=== PATIENT | male | born 1970 | race Caucasian/White ===

== ENCOUNTER → 2019-01-11 | Outpatient (CLI) | payer BC ==
--- NOTE | 2019-01-11 12:06 | NM ---
EXAMINATION TYPE: NM stress cardiolite complete DATE OF EXAM: 01/11/2019 COMPARISON: NONE HISTORY: 48-year-old male shortness of breath, difficulty in breathing TECHNIQUE: After the intravenous administration of 9.94 mCi Tc 99m Sestamibi - Rest images obtained 50 minutes post injection. The patient exercised using a TACHO protocol and 1 minute prior to peak exercise was injected with 26.9 mCi Tc 99m Sestamibi - Stress images obtained 10 minutes post injecti on. FINDINGS: Targeted heart rate was achieved during performance of the study. Total exercise time: 9 minutes. 10. 3 METS were achieved. Review of stress and rest SPECT images demonstrates an apparent fixed perfusion defect along the inferolateral wall which may be attenuation as it is not corroborated on the polar maps. No overt stability is identified. Gated analysis shows normal wall motion with an estimated lef t ventricular ejection fraction of 79 %. TID is calculated at 0.63, within normal limits. IMPRESSION: Fixed perfusion defect along the inferolateral wall not corroborated on polar maps, possible attenuat ion artifact. Further clinical correlation recommended. No suspicious reversibility seen.
--- NOTE | 2019-01-11 12:51 | EST ---
EXERCISE STRESS AGE: 48 SEX: M HT: 5'10" WT: 245 PROTOCOL: Cardiolite Roque Stress Test STAGE: 3 DURATION OF EXERCISE: 9:00 HEART RATE REST: 78 BLOOD PRESSURE REST: 110/80 MAXIMUM HEART RATE ACHIEVED: 153 MAXIMUM BLOOD PRESSURE: 156/83 85% MPHR: 145 100% MPHR: 171 METS: 10.3 INDICATION: Shortness of breath, difficulty in breathing. CLINICAL INFORMATION: STRESS DATA: Pretesting physical examination showed a heart rate of 78, pressure is 110/80 mmHg. Baseline EKG showed sinus mechanism. The patient exercised on the Roque protocol for a total of 9 minutes and achieved 10.3 METS. Max heart rate was 153 which is about 89% of maximum predicted heart rate. Maximum blood pressure was 135/75 mmHg. Clinically, the patient did not have any symptoms of chest pain or chest discomfort during the testing or on recovery and the EKG did not show any evidence of significant ST or T-wave abnormalities concerning for ischemia. CONCLUSION: 1. Excellent exercise tolerance. 2. Normal EKG in response to exercise. 3. Please follow up on the Cardiolite portion on separate report from Radiology Department. MMODL / IJN: [id number] /
== END ==
LOC: RADNMMAIN 08:05
PROVIDERS: ATTEND Family Medicine
DX: R06.02 Shortness of breath (principal)
CPT/HCPCS: 93017; 78452; A9500

== ENCOUNTER 2022-02-27 17:37 | Emergency (ER) | payer BC ==
[2022-02-27 17:57] VITALS: TEMP 99
--- NOTE | 2022-02-27 18:16 | XR ---
EXAMINATION TYPE: XR chest 2V DATE OF EXAM: 02/27/2022 COMPARISON: NONE HISTORY: Cough TECHNIQUE: 2 views FINDINGS: Heart and mediastinum are normal. Lungs are clear. Diaphragm is normal. Bony thorax is inta ct. IMPRESSION: Normal chest.
--- NOTE | 2022-02-27 18:53 | ED ---
URI HPI - General Chief Complaint: Upper Respiratory Infection Stated Complaint: Low O2 Time Seen by Provider: 02/27/22 18:35 Source: patient Mode of arrival: ambulatory Limitations: no limitations - History of Present Illness Initial Comments: Patient is a 52-year-old male presenting with chief complaint of congestion. Patient states that his is currently sick with Covid. Patient has been experiencing congestion, sinus pressure, headache. He was tested for Covid yesterday at an urgent care, PCR and rapid were negative. Patient states that t he urgent care yesterday his oxygen saturation was 88% and they advised him to report to the ER. When the patient was not feeling better today he decided to report for evaluation. He denies any difficulty breathing or chest pain. Mild cough, nonproductive. No palpitations or weakness. No nausea, vomiting, abdominal pain. No difficulty swallowing. No fever or chills. - Related Data Previous Rx's Medication Instructions Recorded Nirmatrelvir/Ritonavir [Paxlovid 1 unit PO BID #1 pack 02/27/22 300-100 mg Pack (Eua)] Allergies Allergy/AdvReac Type Severity Reaction Status Date / Time No Known Allergies Allergy Verified 02/27/22 17:57 Review of Systems ROS Statement: Those systems with pertinent positive or pertinent negative responses have been documented in the HPI. ROS Other: All systems not noted in ROS Statement are negative. Past Medical History Past Medical History: Hypertension History of Any Multi-Drug Resistant Organisms: None Reported Past Surgical History: No Surgical Hx Reported Past Psychological History: No Psychological Hx Reported Smoking Status: Never smoker Past Alcohol Use History: None Reported Past Drug Use History: None Reported General Exam Limitations: no limitations General appearance: alert, in no apparent distress Head exam: Present: atraumatic, normocephalic, normal inspection Eye exam: Present: normal appearance, PERRL, EOMI. Absent: scleral icterus, conjunctival injection, periorbital swelling Neck exam: Present: normal inspection, full ROM Respiratory exam: Present: normal lung sounds bilaterally. Absent: respiratory distress, wheezes, rales, rhonchi, stridor Cardiovascular Exam: Present: regular rate, normal rhythm, normal heart sounds. Absent: systolic murmur, diastolic murmur, rubs, gallop, clicks Neurological exam: Present: alert, oriented X3, CN II-XII intact Psychiatric exam: Present: normal affect, normal mood Skin exam: Present: warm, dry, intact, normal color. Absent: rash Course Vital Signs 02/27/22 02/27/22 17:54 19:18 Temperature 99 F Pulse Rate 84 85 Respiratory 20 16 Rate Blood Pressure 102/69 124/92 O2 Sat by Pulse 96 95 Oximetry Medical Decision Making - Medical Decision Making Is a 52-year-old male presenting with chief complaint of congestion. Patient is also present for evaluation of hit his O2, patient was in urgent care yesterday for Covid testing, he tested negative, however during that visit his oxygen was at about 88%. Patient states he felt fine as we do not report the ER, however today when he did not feel better he decided to seek evaluation. No shortness of breath or difficulty breathing. No palpitations or weakness. Physical examination is unremarkable, heart and lungs are clear to auscultation. Patient's oxygenation here in the ER today is above 90% at all times, ranging from 95% and above. Patient tested positive for Covid today, chest x-ray shows no sign of pneumonia or acute process. Patient has history of hypertension, he is prescribed Paxil over, advised to discontinue the use of atorvastatin while taking this medication. No history of kidney disease. Educated on supportive treatment and quarantine guidelines. Follow-up with PCP. Report back to ER with any new or worsening symptoms. Discussed return parameters and answered all questions. Patient conveyed verbal understanding and agreed to the plan. I discussed this case in detail with my attending Dr. Ramos - Lab Data Lab Results 02/27/22 Range/Units 18:00 Coronavirus (PCR) Detected A (Not Detectd) Disposition Clinical Impression: COVID Disposition: HOME SELF-CARE Condition: Good Instructions (If sedation given, give patient instructions): COVID-19 (Riggs virus Disease 2019) (ED) Additional Instructions: Follow-up with PCP. Report back to ER with any new or worsening symptoms. Quarantined for 5 days starting from the first day of symptoms. If after 5 days URI or fever and symptom free for 24 hours, he may injure quarantine and follow strict mask usage while in public at all times for an additional 5 days. Take Motrin and Tylenol as needed for fever and pain control. Do not take atorvastatin with Paxlovid, you may resume taking atorvastatin 3 days after finishing Paxlovid. Prescriptions: Nirmatrelvir/Ritonavir [Paxlovid 300-100 mg Pack (Eua)] 1 unit PO BID #1 pack Is patient prescribed a controlled substance at d/c from ED?: No Referrals: Vic Faustin MD [Primary Care Provider] - 1-2 days Time of Disposition: 18:53
[2022-02-27 19:20] VITALS: BP 124/92; PULSE 85; RESP 16
== END 2022-02-27 19:21 | disposition home or self-care (01) ==
LOC: EC 17:37
DX: U07.1 COVID-19 (principal); I10 Essential (primary) hypertension
CPT/HCPCS: 71046; 87635; 99284

== ENCOUNTER 2023-02-27 06:26 | Day surgery (SDC) | payer BC ==
[~2023-02-27 06:26] MED LIST: ACETAMINOPHEN TAB 500 MG TAB PO PRN; HEPARIN SODIUM,PORCINE/PF 5,000 UNIT/0.5 ML SYRINGE SQ PRN; Pre Op ABX Message 1 EACH MISC MISCELLANE ONE
[2023-02-27] MEDS ORDERED: HYDROmorphone 0.5 MG/0.5 ML SYRINGE IVP PRN (06:40)
[2023-02-27] MEDS ORDERED: ONDANSETRON 4 MG/2 ML VIAL IVP ONE ×2 (06:40→07:13)
[2023-02-27] MEDS ORDERED: MIDAZOLAM 2 MG/2 ML VIAL IV PRN (06:40)
[2023-02-27] MEDS ORDERED: LIDOCAINE 1% (10MG/ML) FOR IV START INTRADERMA PRN (06:40)
[2023-02-27] MEDS ORDERED: LACTATED RINGERS 1,000 ML IV SCH (06:40)
[2023-02-27] MEDS ORDERED: DEXAMETHASONE SOD PHOSPHATE 4 MG/ML 1 ML VIAL IV ONE ×2 (06:40→07:13)
[2023-02-27 07:11] VITALS: RESP 16
[2023-02-27] MEDS ORDERED: LACTATED RINGERS 1,000 ML IV ONE ×2 (07:11→09:40)
--- NOTE | 2023-02-27 07:22 | P.GSHP ---
History of Present Illness H&P Date: 02/27/23 Chief Complaint: Back lipoma 53-year-old male seen previously in the office for a mass mid back. Increasing in size. Painful at times. No skin changes or drainage. Past Medical History Past Medical History: Hyperlipidemia, Hypertension History of Any Multi-Drug Resistant Organisms: None Reported Past Surgical History: Orthopedic Surgery Additional Past Surgical History / Comment(s): L thumb tendon repair x2, L knee open surgery Past Anesthesia/Blood Transfusion Reactions: No Reported Reaction Smoking Status: Never smoker - Past Family History Father Family Medical History: Myocardial Infarction ([place]) Medications and Allergies Home Medications Medication Instructions Recorded Confirmed Type Aspirin [Adult Low Dose Aspirin EC] 81 mg PO QAM 02/24/23 02/27/23 History Atorvastatin [Lipitor] 20 mg PO QAM 02/24/23 02/27/23 History Losartan-Hctz 50-12.5 mg [Hyzaar 1 tab PO QAM 02/24/23 02/27/23 History 50-12.5] Allergies Allergy/AdvReac Type Severity Reaction Status Date / Time No Known Allergies Allergy Verified 02/27/23 06:49 Surgical - Exam Vital Signs Temp Pulse Resp BP Pulse Ox 97.6 F 76 16 130/80 95 02/27/23 06:55 02/27/23 06:55 02/27/23 06:55 02/27/23 06:55 02/27/23 06:55 Physical exam: General: Well-developed, well-nourished HEENT: Normocephalic, sclerae nonicteric Abdomen: Nontender, nondistended Extremities: No edema, mid back lipoma 6 cm x 5 cm Neuro: Alert and oriented Assessment and Plan (1) Lipoma of back Narrative/Plan: 53-year-old male with lipoma of back. We'll proceed with surgical excision at this time. Risks of bleeding, infection, recurrence, seroma reviewed. He understands and wishes to proceed. Current Visit: Yes Status: Acute Code(s): D17.1 - BENIGN LIPOMATOUS NEOPLASM OF SKIN, SUBCU OF TRUNK SNOMED Code(s): 007530420
[2023-02-27] MEDS ORDERED: NEOSTIGMINE 1 MG/ML 10 ML VIAL ONE (07:23)
[2023-02-27] MEDS ORDERED: MIDAZOLAM 2 MG/2 ML VIAL ONE (07:23)
[2023-02-27] MEDS ORDERED: GLYCOPYRROLATE 0.2 MG/ML 2 ML VIAL ONE (07:23)
[2023-02-27] MEDS ORDERED: SUCCINYLCHOLINE CHLORIDE 200 MG/10 ML VIAL IV ONE (07:23)
[2023-02-27] MEDS ORDERED: LIDOCAINE 1% INJ 10MG/ML (20 ML MDV) ONE (07:23)
[2023-02-27] MEDS ORDERED: ROCURONIUM 10 MG/ML (5 ML VIAL) IV ONE (07:23)
[2023-02-27] MEDS ORDERED: PROPOFOL 10 MG/ML 20 ML VIAL IV ONE (07:23)
[2023-02-27] MEDS ORDERED: KETOROLAC 30 MG/ML 1 ML VIAL ONE (07:23)
[2023-02-27] MEDS ORDERED: fentaNYL (PF) 50 MCG/ML 2 ML AMP ONE (07:23)
[2023-02-27] MEDS ORDERED: BUPIVACAINE (PF) 0.25% 30 ML VIAL SQ ONE ×3 (07:26)
[2023-02-27] MEDS ORDERED: NALOXONE 0.4 MG/ML 1 ML VIAL IV PRN (08:16)
--- NOTE | 2023-02-27 08:24 | P.OP ---
Date of Procedure: 02/27/23 Procedure(s) Performed: PREOPERATIVE DIAGNOSIS: Back lipoma POSTOPERATIVE DIAGNOSIS: Same PROCEDURE: Excision back lipoma with intermediate closure SURGEON: Bryce EBL: 10 mL ANESTHESIA: Gen. COMPLICATIONS: None OPERATIVE PROCEDURE: Patient was placed in the prone position after general anesthesia was achieved. The back was prepped and draped sterilely. A horizontal incision was made overlying the palpable mass. Dissection through the subcutaneous tissues took place using electrocautery. The mass was then excised using a combination of blunt dissection and cautery. This measured 6 x 5 x 3 cm. This was sent to pathology. Saphenous tissues were irrigated. There were then closed using interrupted 3-0 Vicryl sutures. Skin was then closed using a running 4-0 Monocryl suture. Skin glue and sterile dressings applied. Length of intermediate closure 5 cm. DISPOSITION: Stable to recovery room
[2023-02-27 08:28] VITALS: TEMP 97
[2023-02-27 10:06] VITALS: BP 108/66; PULSE 71
== END 2023-02-27 10:01 | disposition home or self-care (01) ==
LOC: OR 06:26
PROVIDERS: ATTEND Surgery
DX: D17.1 Benign lipomatous neoplasm of skin and subcutaneous tissue of trunk (principal); E78.5 Hyperlipidemia, unspecified; I10 Essential (primary) hypertension; Z79.82 Long term (current) use of aspirin; Z79.899 Other long term (current) drug therapy
CPT/HCPCS: 21931; 88304; J2250; J0330; J1100; J2710; J0690; J2405; J2001; J3010; J1885; J2704; J1644; J0665; 88305